=== PATIENT | female | born 1995 | race Caucasian/White ===

== ENCOUNTER 2022-05-26 15:44 | Emergency (ER) | payer OTHER ==
--- OUTSIDE RECORDS SUMMARY | 2022-05-26 15:46 | XMS REPORT | Continuity of Care Document ---
:1995 Author Organization [facility] t Address [address] [place] [address] Care Team Providers Name Role Phone Terra Polk Attending Clinician Unavailable Problems This patient has no known problems. Allergies, Adverse Reactions, Alerts This patient has no known allergies or adverse reactions. Medications This patient has no known medications. Procedures This patient has no known procedures. Encounters Start End Encounter Admission Attending Care Care Encounter Source Date/Time Date/Time Type Type Clinicians Facility Department ID 2022-05-25 Outpatient PolkJAVAD barger [facility] [id number] Common 14:18:[address] [facility] 2022-05-09 Outpatient JAVAD Polk [facility] [id number] Common 12:36:[address] [facility] 2022-05-06 Outpatient PolkJAVAD barger [facility] [id number] Common 08:48:[address] [facility] 2022-05-06 2022-05-06 [facility] [id number] Common 00:00:00 00:00:00 [facility] Results This patient has no known results.
[2022-05-26 16:05] LABS: Hematocrit 36.9 % (36.0-45.0); Lymphocytes % 35.4 % (15.3-44.8); MCV 86.9 fL (80-100); MPV 7.9 fL (7.6-11.3); RBC Red Blood Cell Count 4.24 M/uL (3.86-4.86)
--- NOTE | 2022-05-26 16:07 | RAD REPORT ---
EXAM DESCRIPTION: CT - Ct Stroke Brain Wo Cont - 05/26/2022 3:58 pm CLINICAL HISTORY: Neuro deficit, acute, stroke suspected Headache, drowsiness, CVA symptomology COMPARISON: No comparisons TECHNIQUE: All CT scans are performed using dose optimization technique as appropriate and may inclu de automated exposure control or mA/KV adjustment according to patient size. FINDINGS: No intracranial hemorrhage, hydrocephalus or extra-axial fluid collection.No areas of brai n edema or evidence of midline shift. The paranasal sinuses and mastoids are clear. The calvarium is intact. IMPRESSION: No acute intracranial abnormality. The findings were discussed with Tiny Chicas in the ER on 05/26/2022 at 3:58 p.m. by telephone.
[2022-05-26 16:11] LABS: Protime INR 1.1
[2022-05-26 16:22] LABS: Potassium 3.7 mmol/L (3.5-5.1)
[2022-05-26] MEDS ORDERED: FOLIC ACID 5 MG/ML VIAL ONE (16:22)
[2022-05-26] MEDS ORDERED: NA CHLORIDE 0.9% 1,000 ML ONE (16:22)
[2022-05-26 16:23] LABS: SARS-CoV-2 Antigen Rapid Res Negative (Negative)
--- NOTE | 2022-05-26 17:18 | RAD REPORT ---
EXAM DESCRIPTION: RAD - Chest Single View - 05/26/2022 5:13 pm CLINICAL HISTORY: stroke protocol Chest pain. COMPARISON: No comparisons FINDINGS: Portable technique limits examination quality. The lungs are grossly clear. The heart is normal in size. No displaced fractures. IMPRESSION: No acute intrathoracic process suspected.
--- NOTE | 2022-05-26 17:25 | RAD REPORT ---
EXAM DESCRIPTION: CT - Head angio - 05/26/2022 5:19 pm CLINICAL HISTORY: Headache, new or worsening, neuro deficit Headache, drowsiness, CVA symptomology COMPARISON: Ct Stroke Brain Wo Cont dated 05/26/2022 TECHNIQUE: CT angiography of the head was performed with MIPs. All CT scans are performed using dose optimization technique as appropriate and may include automated exposure control or mA/KV adjustment according to patient size. FINDINGS: No evidence of aneurysm is detected. No flow-limiting stenosis or vascular malformation id entified. Antegrade flow is seen in the vertebral arteries. The vertebral arteries are codominant. The visualized dural venous sinuses are patent. IMPRESSION: No significant flow abnormality is detected.
--- NOTE | 2022-05-26 17:29 | RAD REPORT ---
EXAM DESCRIPTION: CT - Neck Angio - 05/26/2022 5:19 pm CLINICAL HISTORY: rios Headache, drowsiness COMPARISON: No comparisons TECHNIQUE: CT angiography of the neck vessels was performed with MIPs. All CT scans are performed using dose optimization technique as appropriate and may include automated exposure control or mA/KV adjustment according to patient size. FINDINGS: A left aortic arch is identified with normal three vessel configuration of the great vesse ls. No significant flow abnormality is seen of the common carotid bilaterally. 3.3 x 2.0 x 2.0 cm (CC x T x AP) enhancing mass is present splaying the internal and external left ca rotid artery. No significant stenosis is identified involving the cervical segments of both internal carotid arteri es. Normal flow is seen within both vertebral arteries. Mild to moderate lymphadenopathy is present throughout the neck bilaterally, IMPRESSION: No significant carotid stenosis seen. 3.3 cm enhancing mass splaying the left internal and external carotid artery suspicious for carotid b susan tumor. Moderate bilateral nonspecific neck lymphadenopathy.
[2022-05-26] MEDS ORDERED: ASPIRIN 81 MG CHEWABLE TABLET ONE (18:11)
--- NOTE | 2022-05-26 18:22 | ER ---
Nurse's Notes [facility] Name: Leticia Howard Age: 26 yrs Sex: Female : 1995 Arrival Date: 05/26/2022 Time: 15:47 Bed 8 Private MD: Diagnosis: Malignant neoplasm of carotid body-LFET 3.3 CM;Transient cerebral ischemic attack, unspecified-1 MINUTE, RESOLVED;Headache-LEFT SIDED Presentation: 05/26 16:00 Chief complaint: Patient states: she started having facial numbness, and left sided ap3 weakness at approx 1500 today. patient also states she recently had an ultrasound of her neck which showed a 2.7cm mass near or left carotid, and she has her follow up with her provider tomorrow regarding that ultrasound result. Coronavirus screen: At this time, the client does not indicate any symptoms associated with coronavirus-19. Ebola Screen: No symptoms or risks identified at this time. Initial Sepsis Screen: Does the patient meet any 2 criteria? No. Patient's initial sepsis screen is negative. Does the patient have a suspected source of infection? No. Patient's initial sepsis screen is negative. Risk Assessment: Do you want to hurt yourself or someone else? Patient reports no desire to harm self or others. Onset of symptoms was May 26, 2022 at 15:00. 16:00 Method Of Arrival: Ambulatory ap3 16:00 Acuity: MICHA 2 ap3 Triage Assessment: 16:03 Headache History: The patient has had previous headaches. General: Appears in no ap3 apparent distress. Behavior is calm, cooperative. Pain: Denies pain. Pain Pain began 1 hour ago. Also complains of left sided numbness/weakness. Neuro: Level of Consciousness is awake, alert, obeys commands, Oriented to person, place, time, situation, Moves all extremities. Gait is steady, Speech is normal, Facial symmetry appears normal. Neuro: Reports headache numbness weakness. Cardiovascular: Patient's skin is warm and dry. Respiratory: Airway is patent Respiratory effort is even, unlabored. 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 - Social history:: Smoking status: Patient denies any tobacco usage or history of. - Family history:: not pertinent. Screenin:05 Abuse screen: Denies threats or abuse. Nutritional screening: No deficits noted. ap3 Tuberculosis screening: No symptoms or risk factors identified. 19:41 Fall Risk None identified. as6 Assessment: 15:52 Reassessment: Code Stroke called. Pt CT VIA wheelchair, accompanied by CJ Greer. ss 17:00 Reassessment: No changes from previously documented assessment. Patient and/or family bp updated on plan of care and expected duration. Pain level reassessed. 18:00 Reassessment: PT TO MRI. bp 18:10 Reassessment: TRANSFER INITIATED FOR CAROTID TUMOR. bp Vital Signs: 16:00 BP 120 / 71; Pulse 80; Resp 15; Temp 97.7; Pulse Ox 100% ; Weight 58.97 kg; Height 5 ap3 ft. 1 in. (154.94 cm); 17:00 BP 116 / 69; Pulse 75; Resp 21; Pulse Ox 100% ; bp 18:07 BP 130 / 81; Pulse 90; Resp 20; Pulse Ox 100% ; bp 16:00 Body Mass Index 24.56 (58.97 kg, 154.94 cm) ap3 Faiza Coma Score: 18:08 Eye Response: spontaneous(4). Verbal Response: oriented(5). Motor Response: obeys elan commands(6). Total: 15. ED Course: 15:47 Patient arrived in ED. ss 15:48 Melo Zurita RN is Primary Nurse. bp 15:50 Louis York MD is Attending Physician. elan 15:59 CT Stroke Brain w/o Contrast In Process Unspecified. EDMS 16:00 Inserted saline lock: 20 gauge in right antecubital area, using aseptic technique. bp Blood collected. 16:03 Triage completed. ap3 16:05 Arm band placed on right wrist. ap3 16:06 Patient has correct armband on for positive identification. Bed in low position. Call ap3 light in reach. Side rails up X2. Adult w/ patient. proposal lead writer on. Pulse ox on. NIBP on. Door closed. Noise minimized. 16:10 SARS RAPID Sent. bp 17:14 Stroke CXR 1 View In Process Unspecified. EDMS 17:21 CT Head Angio In Process Unspecified. EDMS 17:21 CT Neck Angio In Process Unspecified. EDMS 18:27 Brain Wo Cont In Process Unspecified. EDMS 19:41 No provider procedures requiring assistance completed. Patient transferred, IV remains as6 in place. Administered Medications: 16:15 Drug: NS 0.9% 1000 ml Route: IV; Rate: 1 bolus; Site: right antecubital; bp 18:41 Follow up: IV Status: Completed infusion; IV Intake: 1000ml kb3 16:15 Drug: foLIC Acid 1 mg Route: IVPB; Site: right antecubital; bp 19:41 Follow up: Response: No adverse reaction; IV Status: Completed infusion; IV Intake: [id number] 18:00 Drug: Aspirin Chewable Tablet 324 mg Route: PO; bp 18:20 Follow up: Response: No adverse reaction bp 18:30 Drug: Tylenol 650 mg Route: PO; bp 19:41 Follow up: Response: No adverse reaction as6 Medication: 19:41 VIS not applicable for this client. as6 Intake: 18:41 IV: 1000ml; Total: 1000ml. kb3 19:41 IV: 50ml; Total: 1050ml. as6 Outcome: 18:21 ER care complete, transfer ordered by MD. ansari 19:41 Transferred by ground EMS to [facility], Transfer form completed. as6 X-rays sent w/ patient. 19:41 Condition: stable 19:41 Instructed on the need for transfer. 19:42 Patient left the ED. as6 Signatures: Dispatcher [employer] Louis Villalba MD MD cha Smirch, Shelby, RN RN ss Melo Zurita, RN RN bp Zoey Godinez RN RN ap3 Alessio Barnett RN RN as6 Marie Barnett, RN RN kb3
--- NOTE | 2022-05-26 18:22 | EDPHYS ---
Physician Documentation [facility] Name: Leticia Howard Age: 26 yrs Sex: Female : 1995 Arrival Date: 05/26/2022 Time: 15:47 Bed 8 Private MD: ED Physician Louis York HPI: 05/26 18:00 This 26 yrs old Female presents to ER via Ambulatory with complaints of elan Headache, S/S of Possible Stroke. 18:00 The patient complains of pain to the forehead, left adventism, left frontal area and left elan temporal area. The patient describes the headache as constant. Onset: The symptoms/episode began/occurred at 12:30. Associated signs and symptoms: Pertinent positives: paresthesias, weakness, RIGHT ARM AT 1230PM LASTING 1 MINUTE, HEADACHE NOW ONLY, NIH 0, NO MOTOR OR SENSORY DEFICITS. Severity of symptoms: At its worst the pain was moderate, in the emergency department the pain has improved, mildly. Headache History: Denies prior headaches. The symptoms are alleviated by nothing. the symptoms are aggravated by nothing. The patient has not experienced similar symptoms in the past. 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 - Social history:: Smoking status: Patient denies any tobacco usage or history of. - Family history:: not pertinent. ROS: 18:00 Constitutional: Negative for fever, chills, and weight loss, Eyes: Negative for injury, elan pain, redness, and discharge, ENT: Negative for injury, pain, and discharge, Neck: Negative for injury, pain, and swelling, Cardiovascular: Negative for chest pain, palpitations, and edema, Respiratory: Negative for shortness of breath, cough, wheezing, and pleuritic chest pain, Abdomen/GI: Negative for abdominal pain, nausea, vomiting, diarrhea, and constipation, Back: Negative for injury and pain, : Negative for injury, bleeding, discharge, and swelling, MS/Extremity: Negative for injury and deformity, Skin: Negative for injury, rash, and discoloration, Psych: Negative for depression, anxiety, suicide ideation, homicidal ideation, and hallucinations, Allergy/Immunology: Negative for hives, rash, and allergies, Endocrine: Negative for neck swelling, polydipsia, polyuria, polyphagia, and marked weight changes, Hematologic/Lymphatic: Negative for swollen nodes, abnormal bleeding, and unusual bruising. 18:00 Neuro: Positive for headache. Exam: 18:00 Constitutional: This is a well developed, well nourished patient who is awake, alert, elan and in no acute distress. Head/Face: Normocephalic, atraumatic. Eyes: Pupils equal round and reactive to light, extra-ocular motions intact. Lids and lashes normal. Conjunctiva and sclera are non-icteric and not injected. Cornea within normal limits. Periorbital areas with no swelling, redness, or edema. ENT: Nares patent. No nasal discharge, no septal abnormalities noted. Tympanic membranes are normal and external auditory canals are clear. Oropharynx with no redness, swelling, or masses, exudates, or evidence of obstruction, uvula midline. Mucous membranes moist. Neck: Trachea midline, no thyromegaly or masses palpated, and no cervical lymphadenopathy. Supple, full range of motion without nuchal rigidity, or vertebral point tenderness. No Meningismus. Chest/axilla: Normal chest wall appearance and motion. Nontender with no deformity. No lesions are appreciated. Cardiovascular: Regular rate and rhythm with a normal S1 and S2. No gallops, murmurs, or rubs. Normal PMI, no JVD. No pulse deficits. Respiratory: Lungs have equal breath sounds bilaterally, clear to auscultation and percussion. No rales, rhonchi or wheezes noted. No increased work of breathing, no retractions or nasal flaring. Abdomen/GI: Soft, non-tender, with normal bowel sounds. No distension or tympany. No guarding or rebound. No evidence of tenderness throughout. Back: No spinal tenderness. No costovertebral tenderness. Full range of motion. Skin: Warm, dry with normal turgor. Normal color with no rashes, no lesions, and no evidence of cellulitis. MS/ Extremity: Pulses equal, no cyanosis. Neurovascular intact. Full, normal range of motion. Neuro: Awake and alert, GCS 15, oriented to person, place, time, and situation. Cranial nerves II-XII grossly intact. Motor strength 5/5 in all extremities. Sensory grossly intact. Cerebellar exam normal. Normal gait. Psych: Awake, alert, with orientation to person, place and time. Behavior, mood, and affect are within normal limits. 18:00 ECG was reviewed by the Attending Physician. Vital Signs: 16:00 BP 120 / 71; Pulse 80; Resp 15; Temp 97.7; Pulse Ox 100% ; Weight 58.97 kg; Height 5 ap3 ft. 1 in. (154.94 cm); 17:00 BP 116 / 69; Pulse 75; Resp 21; Pulse Ox 100% ; bp 18:07 BP 130 / 81; Pulse 90; Resp 20; Pulse Ox 100% ; bp 16:00 Body Mass Index 24.56 (58.97 kg, 154.94 cm) ap3 Faiza Coma Score: 18:08 Eye Response: spontaneous(4). Verbal Response: oriented(5). Motor Response: obeys elan commands(6). Total: 15. MDM: 15:51 Patient medically screened. elan 18:08 Differential diagnosis: cluster headache, cerebral vascular accident, hyponatremia, elan migraine, neoplasm, subarachnoid bleed, subdural hematoma, temporal arteritis, tension headache, trigeminal neuralgia, vasomotor headache. Data reviewed: vital signs, nurses notes. Data interpreted: media monitor: Pulse oximetry: on room air is 100 %. Test interpretation: by ED physician or midlevel provider: ECG, plain radiologic studies. Counseling: I had a detailed discussion with the patient and/or guardian regarding: the historical points, exam findings, and any diagnostic results supporting the discharge/admit diagnosis, lab results, radiology results, the need to transfer to another facility, for higher level of care, [facility] does not immediately have the required specialist. 18:10 Physician consultation: Beau Dowd MD after a discussion of the case, a [facility] recommendation for transfer for higher level of care is made, NO TNK, NOT APPROIATE, NO DEFICIT ONLY CHANG. 05/26 15:52 Order name: Basic Metabolic Panel; Complete Time: 17:23 ss 05/26 15:52 Order name: CBC with Diff; Complete Time: 17:23 ss 05/26 15:52 Order name: Protime (+inr); Complete Time: 17:23 ss 05/26 15:52 Order name: Ptt, Activated; Complete Time: 17:23 ss 05/26 15:59 Order name: SARS RAPID; Complete Time: 17:23 bp 05/26 16:11 Order name: Glucose, Ancillary Testing; Complete Time: 17:23 EDMS 18 15:52 Order name: CT Stroke Brain w/o Contrast; Complete Time: 17:23 ss 05/26 15:52 Order name: Stroke CXR 1 View; Complete Time: 17:23 ss 05/26 15:55 Order name: CT Head Angio; Complete Time: 17:49 elan 05/26 15:55 Order name: CT Neck Angio; Complete Time: 17:49 elan 05/26 16:51 Order name: Brain Wo Cont; Complete Time: 18:43 EDMS 05/26 15:52 Order name: EKG; Complete Time: 15:53 ss 05/26 15:52 Order name: Accucheck; Complete Time: 16:00 ss 05/26 15:52 Order name: Cardiac monitoring; Complete Time: 16:10 ss 05/26 15:52 Order name: EKG - Nurse/Tech; Complete Time: 16:10 ss 05/26 15:52 Order name: IV Saline Lock; Complete Time: 16:10 ss 05/26 15:52 Order name: Labs collected and sent; Complete Time: 16:10 ss 05/26 15:52 Order name: NPO; Complete Time: 16:00 ss 05/26 15:52 Order name: O2 Per Protocol; Complete Time: 16:00 ss 05/26 15:52 Order name: O2 Sat Monitoring; Complete Time: 16:00 ss 05/26 15:52 Order name: Stroke Swallow Screen; Complete Time: 16:00 ss EC:00 Rate is 70 beats/min. Rhythm is regular. QRS [place] is Normal. NE interval is normal. QRS elan interval is normal. QT interval is normal. No Q waves. T waves are Normal. No ST changes noted. Clinical impression: Normal ECG and No evidence of ischemia. Interpreted by me. Reviewed by me. Administered Medications: 16:15 Drug: NS 0.9% 1000 ml Route: IV; Rate: 1 bolus; Site: right antecubital; bp 18:41 Follow up: IV Status: Completed infusion; IV Intake: 1000ml kb3 16:15 Drug: foLIC Acid 1 mg Route: IVPB; Site: right antecubital; bp 19:41 Follow up: Response: No adverse reaction; IV Status: Completed infusion; IV Intake: [id number] 18:00 Drug: Aspirin Chewable Tablet 324 mg Route: PO; bp 18:20 Follow up: Response: No adverse reaction bp 18:30 Drug: Tylenol 650 mg Route: PO; bp 19:41 Follow up: Response: No adverse reaction as6 Disposition Summary: 05/26/22 18:21 Transfer Ordered Transfer Location: [facility] elan Reason: Higher level of care elan Condition: Fair elan Problem: new elan Symptoms: have improved elan Accepting Physician: TO [facility](05/26/22 19:42) as6 Diagnosis - Malignant neoplasm of carotid body - LFET 3.3 CM elan - Transient cerebral ischemic attack, unspecified - 1 MINUTE, RESOLVED elan - Headache - LEFT SIDED elan Forms: - Medication Reconciliation Form elan - SBAR form elan Signatures: Dispatcher [employer] EDMS Louis York MD MD cha Smirch, Shelby RN RN ss Melo Zurita RN RN bp Zoey Godinez RN RN ap3 Alessio Barnett RN RN as6 Marie Barnett RN kb3 Corrections: (The following items were deleted from the chart) 16:51 15:56 MR STROKE PROTOCOL+[id number].RAD.BRZ ordered. EDIL EDMS 19:42 18:21 TO [facility] elan as6
[2022-05-26] MEDS ORDERED: ACETAMINOPHEN 325 MG TABLET ONE (18:34)
--- NOTE | 2022-05-26 18:35 | RAD REPORT ---
EXAM DESCRIPTION: MRI - Brain Wo Cont - 05/26/2022 6:26 pm CLINICAL HISTORY: cva Headache, drowsiness, CVA symptomology COMPARISON: Neck Angio dated 05/26/2022; Head angio dated 05/26/2022 TECHNIQUE: Multi-sequence, multiplanar MR imaging of the brain was performed without contrast. FINDINGS: No intracranial hemorrhage, hydrocephalus or extra-axial fluid collections. No edema or sh ift of midline structures. No findings to suspect brain mass. DWI is negative for acute CVA. Midline structures are normally formed. Mastoid air cells and paranasal sinuses are clear. IMPRESSION: No acute or concerning intracranial abnormalities.
[2022-05-26 19:55] VITALS: TEMP 97.7; O2SAT 100
[2022-05-26 19:59] VITALS: BP 130/81
--- NOTE | 2022-05-27 08:02 | EKG ---
Test Date: 2022-05-26 Test Time: 16:05:29 Senior Cost Analyst: HAILEY MEASUREMENT RESULTS: Intervals: Rate: 70 PA: 154 QRSD: 98 QT: 414 QTc: 447 [place]: P: 63 PA: 154 QRS: 86 T: -16 INTERPRETIVE STATEMENTS: Normal sinus rhythm Septal infarct, age undetermined ST & T wave abnormality, consider inferior ischemia Abnormal ECG No previous ECG available for comparison Electronically Signed On 05-27-22 08:01:29 CDT by Guevara Olmedo
== END 2022-05-26 19:42 | disposition short-term general hospital (02) ==
LOC: ER 15:44
DX: C75.4 Malignant neoplasm of carotid body (principal); Z20.822 Contact with and (suspected) exposure to COVID-19
CPT/HCPCS: 96365; 93005; 85025; 80048; 36415; 85610; 82947; 85730; 70496; 70498; 70450; 71045; 70551; 99285; 96366; 87811; Q9967; J7030